=== PATIENT | female | born 1950 | race Caucasian/White ===

== ENCOUNTER → 2017-07-04 | Outpatient (CLI) | payer MEDICARE, OTHER ==
[2014-09-17 09:58] VITALS: BMI 18.9
[~2017-07-04] MED LIST: ASCO250T85 PO; ASP300S PO; ESC10 PO; LEVO-85 PO; LIS20 PO; LOR5 PO; LOR5/325 PO; MAX75 PO; MET50 PO; METR-160 PO; OLME1TAB57 PO; ONDA4TAB9 SL; PER PO; ZINC
--- NOTE | 2017-07-04 09:02 | EKG ---
[place] [facility] [place]: ANA FAN : [id number] MR: [id number] V: [id number] EXAM DATE: ORDERING PHYSICIAN: ROBERTH GARG TECHNOLOGIST: LISA Test Reason : MEDICARE Blood Pressure : / mmHG Vent. Rate : 068 BPM Atrial Rate : 068 BPM P-R Int : 162 ms QRS Dur : 072 ms QT Int : 454 ms P-R-T Axes : -36 -42 059 degrees QTc Int : 482 ms Unusual P axis, possible ectopic atrial rhythm Left axis deviation No acute appearing ST-T findings Abnormal ECG No previous ECGs available Confirmed by BRIGHT KWOK ([id number]) on 07/04/2017 12:17:02 PM Referred By: BRITANY Confirmed By:BRIGHT KWOK
--- NOTE | 2017-07-04 16:38 | RADIOLOGY IMAGING REPORT ---
FACILITY: [facility] PATIENT NAME: ANA FAN : [id number] MR: [id number] V: [id number] EXAM DATE: [id number] ORDERING PHYSICIAN: ROBERTH GARG TECHNOLOGIST: Rica Salamanca PROCEDURE:BILATERAL DIGITAL SCREENING MAMMOGRAM WITH CAD ASSISTED INTERPRETATION & 3D TOMOSYNTHESIS COMPARISON:None. INDICATIONS:baseline FINDINGS: Moderately dense fibroglandular tissue is seen throughout the breasts. In the medial portion of the Left breast approximately 3.5cm from the nipple is a nodular density for which Spot compression view is recommended for further evaluation. Posterior to mid nipple line on the Left MLO view approximately 10cm from the nipple is a small nodular density for which Spot compression view is recommended. Posterior to mid nipple line on the Left MLO view is a local asymmetry 6cm from the nipple for which Spot compression view is recommended. DIAGNOSTIC CATEGORY 0--INCOMPLETE: NEED ADDITIONAL IMAGING EVALUATION. RECOMMENDATIONS: ADDITIONAL MAMMOGRAPHIC VIEWS REQUIRED: LEFT BREAST. IMPRESSION: BIRADS 0: Incomplete Additional views of Left breast recommended as described above. Dictated by: Mine Duque M.D. on 07/04/2017 at 14:05 Transcribed by: JENISE on 07/04/2017 at 14:22 Approved by: Mine Duque M.D. on 07/04/2017 at 16:36 [facility]
== END ==
LOC: MAMO 01:55
PROVIDERS: ATTEND Nurse Practitioner Family
DX: Z12.31 Encounter for screening mammogram for malignant neoplasm of breast (principal); Z00.00 Encounter for general adult medical examination without abnormal findings; R94.31 Abnormal electrocardiogram [ECG] [EKG]; R92.8 Other abnormal and inconclusive findings on diagnostic imaging of breast
CPT/HCPCS: 77063; 77067; 93005

== ENCOUNTER → 2017-07-22 | Outpatient (CLI) | payer MEDICARE, OTHER ==
[2014-09-17 09:58] VITALS: BMI 18.9
--- NOTE | 2017-07-23 10:36 | RADIOLOGY IMAGING REPORT ---
FACILITY: [facility] PATIENT NAME: ANA FAN : [id number] MR: [id number] V: [id number] EXAM DATE: ORDERING PHYSICIAN: ROBERTH GARG TECHNOLOGIST: Danita Billy PROCEDURE:US LEFT BREAST COMPLETE COMPARISON:Today's diagnostic mammogram INDICATIONS:abnormal mammo/further evaluation FINDINGS: In the 9 o'clock position of the Left breast 1cm from the nipple there is an ovoid hypoechoic nodule measuring 4.6 x 3.9 x 2.9mm. There is no acoustic shadowing. Also in the 9 o'clock position 3cm from the nipple is a 4.2mm ovoid well circumscribed hypoechoic nodule. In the 10 o'clock position 5cm from the nipple there is a 2.7mm round hypoechoic nodule. In the 2 o'clock position 5cm from the nipple is a 4.1 x 2 x 1.8mm ovoid hypoechoic nodule. These nodules may account for the recent mammographic findings. A 6 month follow up Left mammogram & Left breast Ultrasound recommended unless clinical findings warrant more immediate attention. DIAGNOSTIC CATEGORY 3--PROBABLY BENIGN FINDING. RECOMMENDATIONS: SIX MONTH FOLLOW-UP DIAGNOSTIC MAMMOGRAM: LEFT BREAST. SIX MONTH FOLLOW-UP ULTRASOUND: LEFT BREAST. IMPRESSION: BIRADS 3: Probably benign finding. A 6 month follow up Left mammogram & Left breast Ultrasound recommended as described above. Dictated by: Mine Duque M.D. on 07/22/2017 at 17:09 Transcribed by: NARCISO on 07/23/2017 at 9:04 Approved by: Mine Duque M.D. on 07/23/2017 at 10:35 [facility]
--- NOTE | 2017-07-23 10:36 | RADIOLOGY IMAGING REPORT ---
FACILITY: [facility] - [place] PATIENT NAME: ANA FAN : [id number] MR: [id number] V: [id number] EXAM DATE: [id number] ORDERING PHYSICIAN: ROBERTH GARG TECHNOLOGIST: Judy Villeda PROCEDURE:LEFT DIGITAL DIAGNOSTIC MAMMOGRAM WITH CAD ASSISTED INTERPRETATION & 3D TOMOSYNTHESIS COMPARISON:Baseline mammogram of 07/04/17 INDICATIONS:FURTHER EVAL FINDINGS: Spot compression views in the Left CC & MLO projections confirms well circumscribed nodular density in the medial approximate 9 o'clock position of the Left breast. Today's Left breast Ultrasound demonstrated multiple small hypoechoic nodules. A 6 month follow up Left breast Ultrasound & Left mammogram recommended unless clinical findings warrant more immediate attention. DIAGNOSTIC CATEGORY 3--PROBABLY BENIGN FINDING. RECOMMENDATIONS: SIX MONTH FOLLOW-UP DIAGNOSTIC MAMMOGRAM: LEFT BREAST. SIX MONTH FOLLOW-UP ULTRASOUND: LEFT BREAST. IMPRESSION: BIRADS 3: Probably benign finding. 6 month follow up Left mammogram & Left breast Ultrasound recommended unless clinical findings warrant more immediate attention. Dictated by: Mine Duque M.D. on 07/22/2017 at 17:11 Transcribed by: NARCISO on 07/23/2017 at 8:05 Approved by: Mine Duque M.D. on 07/23/2017 at 10:35 [facility]
== END ==
LOC: MAMO 02:14
PROVIDERS: ATTEND Nurse Practitioner Family
DX: N63.22 Unspecified lump in the left breast, upper inner quadrant (principal); N63.21 Unspecified lump in the left breast, upper outer quadrant
CPT/HCPCS: 77061; 77065

== ENCOUNTER → 2018-05-09 | Outpatient (CLI) | payer MEDICARE, OTHER ==
[2014-09-17 09:58] VITALS: BMI 18.9
[~2018-05-09] MED LIST changes: +IOPAMIDOL 61% 50 ML INFUS BTL 50 ML ONE; +IOPAMIDOL 61% 75 ML INFUS BTL 75 ML ONE; -METR-160 PO; +METR500T15 PO
--- NOTE | 2018-05-09 10:48 | RADIOLOGY IMAGING REPORT ---
FACILITY: [facility] PATIENT NAME: Rebecca Rincon : 1950 MR: [id number] V: [id number] EXAM DATE: ORDERING PHYSICIAN: ROBERTH GARG TECHNOLOGIST: Location: [facility] [place] Patient: Rebecca Rincon : 1950 Visit/Account:[id number] Date of Sevice: 05/09/2018 DEXA Scan Clinical history: Osteoporosis screening. Comparison: 05/12/2003. LUMBAR SPINE: Bone mineral density (BMD) measured in the lumbar spine correlates with a T-score of 1.5 and a Z-scor e of 3.5 which is normal as defined by the World Health Organization. The corresponding risk of fra cture in the lumbar spine is not increased compared with a young adult reference population. Lumbar spine bone density has increased by 1.7% compared to previous. Note that degenerative changes may f alsely increase bone density. LEFT FEMORAL NECK: Bone mineral density (BMD) measured in the femoral neck correlates with a T-score of -2.3 and a Z-sco re of -0.5 which is osteopenia as defined by the World Health Organization. Bone mineral density (BMD) measured in the femoral neck region is 0.715 g/cm2. LEFT TOTAL HIP: Total hip bone mineral density (BMD) correlates with a T-score of -2.0 and a Z-score of -0.4 which is osteopenia as defined by the World Health Organization. Total hip bone density has decreased by 20. 9% compared to previous. The corresponding risk of fracture in the hip is increased compared with a young adult reference popu lation. IMPRESSION: 1. Lumbar spine: Normal bone density. Lumbar spine bone density has increased by 1.7% compared to previous. 2. Left femoral neck: Osteopenia. 3. Left femoral neck: Bone Mineral Density is 0.715 g/cm2. 4. Left total hip: Osteopenia. Total hip bone density has decreased by 20.9% compared to previous. FRAX WHO Fracture Risk Assessment Tool link: <http://www.shef.ac.uk/FRAX/tool.jsp?locationValue=9> PLEASE NOTE: 1) The World Health Organization defines low BMD as follows: T-score Normal > -1 Osteopenia < -1 and > -2.5 Osteoporosis < -2.5 without fractures Established osteoporosis < -2.5 with fractures 2) In general, you may wish to consider: Diagnosis Treatment Follow-up DEXA Normal BMD Prevention 2-3 years Osteopenia Prevention/therapy 1-2 years Osteoporosis Therapy Yearly 3) Fracture risk estimated from the T-score is more accurate for vertebral fractures (often spontane ous) than for hip fractures. Report Dictated By: Nba Barlow MD at 05/09/2018 10:42 AM Report E-Signed By: Nba Barlow MD at 05/09/2018 10:44 AM WSN:KATARINA
--- NOTE | 2018-05-09 14:31 | RADIOLOGY IMAGING REPORT ---
FACILITY: [facility] PATIENT NAME: Rebecca Rincon : 1950 MR: [id number] V: [id number] EXAM DATE: ORDERING PHYSICIAN: ROBERTH GARG TECHNOLOGIST: Location: [facility] Patient: Rebecca Rincon : 1950 Visit/Account:[id number] Date of Sevice: 05/09/2018 CT scan of the abdomen and pelvis with contrast. HISTORY: Chronic abdominal pain. COMPARISON: 09/20/2014. 3 mm thick and [address] images were obtained of the abdomen and pelvis using 90 mL intrave nous Isovue 300. No oral contrast. One of the following dose optimization techniques was utilized i n the performance of this exam: Automated exposure control; adjustment of the mA and/or kV according to the patient's size; or use of an iterative reconstruction technique. Specific details can be ref erenced in the facility's radiology CT exam operational policy. FINDINGS: Several small bullae are present in the lung bases. Mild streaky densities are present in the lung b ases. The abdominal aorta and lower thoracic aorta are mildly ectatic and calcified. The iliac arteries ar e moderately calcified. The liver and spleen are normal in size. A 2 cm heterogeneous lesion probab ly representing a hemangioma is present in the lateral segment of the left liver lobe. The gallbladd er is incompletely distended. The bile ducts are unremarkable. The portal vein is patent. The panc reas is normal in size. The kidneys and adrenal glands are normal in size. A 3 mm calcification is present in the midportion of the left kidney. No hydronephrosis. The ureters are not well opacified . The urinary bladder is incompletely opacified and incompletely distended. Several fluid and gas-filled loops of bowel are present in the lower abdomen and pelvis. The uterus is partially calcified. The ovaries are not visualized. Small densities probably representing anast omotic eric are present in the lower abdomen and pelvis. Unopacified bowel loops are scattered in the abdomen and pelvis. The appendix is normal in size. No bulky adenopathy. Degenerative changes are present in the spine. IMPRESSION: 2 cm left liver lobe lesion probably representing a hemangioma. Atherosclerosis. Nonobstructing left nephrolithiasis. Calcified uterine fibroids. Postsurgical changes in the lower abdomen and pelvis. COPD. Report Dictated By: Nba Barlow MD at 05/09/2018 2:14 PM Report E-Signed By: Nba Barlow MD at 05/09/2018 2:27 PM WSN:KATARINA
== END ==
LOC: CT 01:28
PROVIDERS: ATTEND Nurse Practitioner Family
DX: M85.89 Other specified disorders of bone density and structure, multiple sites (principal); K76.9 Liver disease, unspecified; I25.10 Atherosclerotic heart disease of native coronary artery without angina pectoris; N20.0 Calculus of kidney; D25.9 Leiomyoma of uterus, unspecified; J44.9 Chronic obstructive pulmonary disease, unspecified; Z98.890 Other specified postprocedural states
CPT/HCPCS: 74177; 77080; Q9967

== ENCOUNTER → 2018-05-19 | Outpatient (CLI) | payer MEDICARE, OTHER ==
[2014-09-17 09:58] VITALS: BMI 18.9
[~2018-05-19] MED LIST changes: -IOPAMIDOL 61% 50 ML INFUS BTL 50 ML ONE; -IOPAMIDOL 61% 75 ML INFUS BTL 75 ML ONE
== END ==
LOC: RESP 07:17
PROVIDERS: ATTEND Nurse Practitioner Family
DX: J98.4 Other disorders of lung (principal)
CPT/HCPCS: 94060; 94726; 94729